=== PATIENT | female | born 1960 | race Caucasian/White ===

== ENCOUNTER → 2020-09-06 | Day surgery (SDC) | payer BC ==
[~2020-09-06] MED LIST: CALCIUM ZINC PO; FERROUS FUMARA324 MG PO; MULTI-VITAMIN1 EACH PO; OR PHACO EYE KIT ONE; PREOP PHACO EYE KIT ONE; SYNTHROID112 MCG PO; VITAMIN B-121000 MCG PO; VITAMIN D310 MCG PO
[2020-09-06 14:38] VITALS: BP 122/69
== END | disposition home or self-care (01) ==
LOC: OR 10:30
PROVIDERS: ATTEND Ophthalmology
DX: H25.12 Age-related nuclear cataract, left eye (principal); Z01.812 Encounter for preprocedural laboratory examination; Z20.822 Contact with and (suspected) exposure to COVID-19
CPT/HCPCS: 66984; U0002; V2788